=== PATIENT | male | born 1990 | race Two or more races ===

== ENCOUNTER 2022-03-13 03:51 | Emergency (ER) | payer OTHER ==
[~2022-03-13] VITALS: Ht 185.4 cm; Wt 100.7 kg
--- NOTE | 2022-03-13 04:30 | NUR ---
CRESCENCIO BIBSELF C/O ABRASION TO FORE HEAD AND CRYSTAL KNEES, ETOH. PATIENT IS A/O X 3, RR EVEN, NO ACUTE DISTRESS NOTED. VSS.
--- NOTE | 2022-03-13 04:50 | NUR ---
PT TAKEN TO CT VIA [facility]
[2022-03-13] MEDS ORDERED: TDAP [DIPH/PERTUSSIS/TET] 0.5 ML VIAL IM ONE ×2 (05:00→05:12)
--- NOTE | 2022-03-13 05:08 | NUR ---
PT RETURNED TO ER BED [address]
--- NOTE | 2022-03-13 09:00 | NUR ---
PT IN BED SLEEPING VSS.
--- NOTE | 2022-03-13 10:16 | NUR ---
PATIENT IS AWAKE AND ALERT, STATES "I AM READY TO GO HOME". AMBULATED THE PATIENT EXHIBITING STEADY GAIT. [id number] WITH STABLE VITAL SIGNS.
--- NOTE | 2022-03-13 10:21 | NUR ---
Patient discharged to home in stable condition. Written and verbal after care instructions given. Patient verbalizes understanding of instruction.
[2022-03-13 11:07] VITALS: BP 130/74
== END 2022-03-13 11:08 | disposition home or self-care (01) ==
LOC: ER 03:53
DX: S00.81XA Abrasion of other part of head, initial encounter (principal); S80.212A Abrasion, left knee, initial encounter; S80.211A Abrasion, right knee, initial encounter; Y04.2XXA Assault by strike against or bumped into by another person, initial encounter; Y93.89 Activity, other specified; Y92.89 Other specified places as the place of occurrence of the external cause; Y99.8 Other external cause status
CPT/HCPCS: 70450-TC; 71045-TC; 72125-TC; 73564-TC; 90715